=== PATIENT | female | born 1995 ===

== ENCOUNTER 2024-05-03 21:14 | Outpatient (CLI) | payer OTHER ==
[2024-05-03 21:35] VITALS: BP 119/71
[2024-05-03] MEDS ORDERED: UNRESOLVED CLARIFICATION ENTRY XX STA (23:38)
[2024-05-04 00:09] LABS: TOTAL PROTEIN,RANDOM URINE 12.6 MG/DL (0.0-14.0)
[2024-05-04 00:14] LABS: CREATININE,RANDOM URINE 64.3 MG/DL
[2024-05-04] MEDS: FIORICET TAB PO PRN (00:30)
[2024-05-04 00:45] LABS: HEMATOCRIT 35.5 % (36.0-47.0); HEMOGLOBIN 12.2 g/dl (12.0-15.5); MEAN CORPUSCULAR HEMOGLOBIN 30.1 pg (27.0-33.0); MEAN CORPUSCULAR HGB CONC 34.4 g/dl (32.0-36.5); MEAN CORPUSCULAR VOLUME 87.7 fl (80.0-96.0); PLATELET COUNT, AUTOMATED 259 10^3/uL (150-450); RED BLOOD COUNT 4.05 10^6/uL (4.00-5.40); WHITE BLOOD COUNT 13.6 10^3/uL (4.0-10.0)
[2024-05-04 01:07] LABS: URIC ACID 3.6 MG/DL (3.1-7.8)
[2024-05-04 01:09] LABS: LDH LACTATE DEHYDROGENASE 131 U/L (120-246)
[2024-05-04 01:10] LABS: ALBUMIN 2.7 G/DL (3.2-5.2); ALKALINE PHOSPHATASE 114 U/L (35-104); ALT/SGPT 21 U/L (7.0-40); AST/SGOT 13 U/L (<34); BILIRUBIN,TOTAL 0.7 MG/DL (0.3-1.2); BLOOD UREA NITROGEN 12 MG/DL (9-23); CALCIUM LEVEL 9.1 MG/DL (8.5-10.1); CARBON DIOXIDE LEVEL 25 MMOL/L (20-31); CHLORIDE LEVEL 106 MMOL/L (98-107); GLOMERULAR FILTRATION RATE > 60.0 (>60); GLUCOSE, FASTING 131 MG/DL (60-100); POTASSIUM SERUM 3.9 MMOL/L (3.5-5.1); SODIUM LEVEL 136 MMOL/L (136-145); TOTAL PROTEIN 5.6 G/DL (5.7-8.2)
[2024-05-04 01:23] VITALS: BP 112/77
== END 2024-05-04 01:28 | disposition home or self-care (01) ==
LOC: M LDO 21:14
PROVIDERS: ATTEND Obstetrics & Gynecology
DX: O14.93 Unspecified pre-eclampsia, third trimester (principal); O99.353 Diseases of the nervous system complicating pregnancy, third trimester; O99.283 Endocrine, nutritional and metabolic diseases complicating pregnancy, third trimester; O41.03X9 Oligohydramnios, third trimester, other fetus; G35 Multiple sclerosis; E03.9 Hypothyroidism, unspecified; G43.909 Migraine, unspecified, not intractable, without status migrainosus; Z88.8 Allergy status to other drugs, medicaments and biological substances; Z3A.35 35 weeks gestation of pregnancy
CPT/HCPCS: 59025; 76815; 80053; 82570; 83615; 84156; 84550; 85027; G0463